=== PATIENT | female | born 1995 | race African-American/Black ===

== ENCOUNTER 2017-01-01 08:34 | Emergency (ER) | payer MEDICAID, OTHER ==
[~2017-01-01] VITALS: Ht 172.7 cm; Wt 59.0 kg
[2017-01-01 08:48] VITALS: BP 137/73
== END 2017-01-01 10:32 | disposition home or self-care (01) ==
LOC: ER 10:22
DX: T16.9XXA Foreign body in ear, unspecified ear, initial encounter (principal); F17.200 Nicotine dependence, unspecified, uncomplicated; W45.8XXA Other foreign body or object entering through skin, initial encounter; Y93.89 Activity, other specified; Y92.89 Other specified places as the place of occurrence of the external cause; Y99.8 Other external cause status
CPT/HCPCS: 99281

== ENCOUNTER 2017-07-26 18:12 | Emergency (ER) | payer MEDICAID ==
[~2017-07-26] VITALS: Ht 175.3 cm; Wt 69.0 kg
[2017-07-26 19:21] LABS: CLARITY URINE CLOUDY (CLEAR); COLOR URINE YELLOW (YELLOW); GLUCOSE URINE NEGATIVE (NEGATIVE); KETONES URINE 3+ (NEGATIVE); LEUKOCYTE ESTERASE URINE 2+ (NEGATIVE); NITRITE URINE POSITIVE (NEGATIVE); OCCULT BLOOD URINE 1+ (NEGATIVE); PROTEIN URINE TRACE (NEGATIVE)
[2017-07-26 21:44] VITALS: BP 119/71
== END 2017-07-26 21:45 | disposition home or self-care (01) ==
LOC: ER 18:12
DX: R07.9 Chest pain, unspecified (principal); N39.0 Urinary tract infection, site not specified; F17.200 Nicotine dependence, unspecified, uncomplicated
CPT/HCPCS: 71010; 76830; 76856; 81001; 81025; 93005; 99285

== ENCOUNTER 2018-08-07 10:03 | Emergency (ER) | payer MEDICAID ==
[~2018-08-07] VITALS: Ht 172.7 cm; Wt 59.0 kg
[2018-08-07] MEDS ORDERED: ONDANSETRON HCL 4MG/2ML INJ IV STA (10:51)
[2018-08-07] MEDS ORDERED: SODIUM CHLORIDE 0.9% 1,000 ML IV ONE (10:51)
[2018-08-07 11:06] LABS: CLARITY URINE CLOUDY (CLEAR); COLOR URINE YELLOW (YELLOW); KETONES URINE 1+ (NEGATIVE); LEUKOCYTE ESTERASE URINE 1+ (NEGATIVE); NITRITE URINE NEGATIVE (NEGATIVE); OCCULT BLOOD URINE 1+ (NEGATIVE); PH URINE 5.5 (4.5-8.0); PROTEIN URINE TRACE (NEGATIVE)
[2018-08-07 12:09] LABS: BASOPHILS % 0.6 % (0.0-2.0); EOSINOPHILS % 2.3 % (0.0-5.0); HEMATOCRIT. 36.5 % (36.0-48.0); HEMOGLOBIN. 12.1 g/dL (12.0-16.0); LYMPHOCYTES % 40.9 % (20.0-50.0); MEAN CORPUSCULAR HEMOGLOBIN 28.6 pg (28.0-32.0); MEAN CORPUSCULAR VOLUME 86.1 fL (81.0-99.0); MEAN PLATELET VOLUME 10.2 fl (7.4-10.4); MONOCYTES % 13.8 % (2.0-8.0); NEUTROPHILS % 42.4 % (40.0-76.0); PLATELET 209 x1000/uL (130-400); RED BLOOD CELL COUNT 4.24 mill/uL (4.2-5.4); RED CELL DISTRIBUTION WIDTH 13.3 % (11.6-14.6)
[2018-08-07 12:15] LABS: CHLORIDE 107 mEq/L (98-107)
[2018-08-07] MEDS ORDERED: POTASSIUM CHLORIDE 20MEQ TABLET SR PO ONE (13:15)
[2018-08-07 14:38] VITALS: BP 108/68
== END 2018-08-07 14:40 | disposition home or self-care (01) ==
LOC: ER 10:03
DX: K52.9 Noninfective gastroenteritis and colitis, unspecified (principal); F12.10 Cannabis abuse, uncomplicated
CPT/HCPCS: 36415; 80053; 81003; 81025; 83690; 85025; 96361; 96374; 99283; J2405; J7030

== ENCOUNTER 2019-08-14 16:26 | Emergency (ER) | payer MEDICAID ==
[~2019-08-14] VITALS: Ht 172.7 cm; Wt 60.0 kg
[2019-08-14 17:19] VITALS: BP 115/56
[2019-08-14] MEDS ORDERED: CEFTRIAXONE SODIUM 250 MG/VIAL IM ONE (20:15)
[2019-08-14] MEDS ORDERED: AZITHROMYCIN 500 MG TABLET PO ONE (20:15)
[2019-08-14 20:29] LABS: CLARITY URINE CLOUDY (CLEAR); COLOR URINE YELLOW (YELLOW); KETONES URINE 1+ (NEGATIVE); LEUKOCYTE ESTERASE URINE TRACE (NEGATIVE); NITRITE URINE POSITIVE (NEGATIVE); OCCULT BLOOD URINE NEGATIVE (NEGATIVE); PH URINE 5.5 (4.5-8.0); PROTEIN URINE 2+ (NEGATIVE); SPECIFIC GRAVITY URINE 1.031 (1.005-1.030)
== END 2019-08-14 20:58 | disposition home or self-care (01) ==
LOC: ER 16:26
DX: O23.41 Unspecified infection of urinary tract in pregnancy, first trimester (principal); O99.320 Drug use complicating pregnancy, unspecified trimester; F12.90 Cannabis use, unspecified, uncomplicated; Z3A.00 Weeks of gestation of pregnancy not specified
CPT/HCPCS: 81003; 81025; 96372; 99283; J0696

== ENCOUNTER 2019-12-10 23:13 | Emergency (ER) | payer MEDICAID ==
[~2019-12-10] VITALS: Ht 175.3 cm; Wt 64.0 kg
[2019-12-11 01:46] VITALS: BP 130/76
[2019-12-11] MEDS ORDERED: ACETAMINOPHEN 325MG TABLET PO STA (02:14)
[2019-12-11] MEDS ORDERED: VISCOUS LIDOCAINE 2% 15 ML UDC PO ONE (02:15)
[2019-12-11] MEDS ORDERED: MAGNESIUM/ALUMINUM HYDROXIDE/SIMETHICONE 30ML UDC PO ONE (02:15)
[2019-12-11 03:05] LABS: CLARITY URINE TURBID (CLEAR); COLOR URINE YELLOW (YELLOW); KETONES URINE NEGATIVE (NEGATIVE); LEUKOCYTE ESTERASE URINE 3+ (NEGATIVE); NITRITE URINE NEGATIVE (NEGATIVE); OCCULT BLOOD URINE NEGATIVE (NEGATIVE); PROTEIN URINE NEGATIVE (NEGATIVE)
[2019-12-11 03:53] LABS: BASOPHILS % 0.3 % (0.0-2.0); HEMATOCRIT. 30.4 % (36.0-48.0); HEMOGLOBIN. 10.1 g/dL (12.0-16.0); LYMPHOCYTES % 20.3 % (20.0-50.0); MEAN CORPUSCULAR HEMOGLOBIN 29.7 pg (28.0-32.0); MEAN CORPUSCULAR VOLUME 89.1 fL (81.0-99.0); MEAN PLATELET VOLUME 10.3 fl (7.4-10.4); MONOCYTES % 8.8 % (2.0-8.0); NEUTROPHILS % 67.6 % (40.0-76.0); PLATELET 160 x1000/uL (130-400); RED BLOOD CELL COUNT 3.41 mill/uL (4.2-5.4); RED CELL DISTRIBUTION WIDTH 13.8 % (11.6-14.6)
[2019-12-11 03:58] LABS: CHLORIDE 109 mEq/L (98-107)
== END 2019-12-11 05:08 | disposition left against medical advice (07) ==
LOC: ER 23:13
DX: O23.32 Infections of other parts of urinary tract in pregnancy, second trimester (principal); Z3A.21 21 weeks gestation of pregnancy
CPT/HCPCS: 36415; 80053; 81003; 81025; 83880; 84484; 85025; 93005; 99284

== ENCOUNTER 2020-01-07 21:34 | Observation (INO) | payer MEDICAID ==
[~2020-01-07] VITALS: Ht 172.7 cm; Wt 63.5 kg
[2020-01-07] MEDS ORDERED: PREN1TAB78 MT (22:17)
== END 2020-01-07 22:45 | disposition home or self-care (01) ==
LOC: 8 EST LDRP 21:34
PROVIDERS: ADMIT Specialist; ATTEND Specialist
DX: O26.892 Other specified pregnancy related conditions, second trimester (principal); R07.89 Other chest pain; Z3A.26 26 weeks gestation of pregnancy
CPT/HCPCS: 99281; G0378

== ENCOUNTER 2020-01-07 23:07 | Emergency (ER) | payer MEDICAID ==
[~2020-01-07] VITALS: Ht 172.7 cm; Wt 64.0 kg
[~2020-01-07 23:07] MED LIST: PREN1TAB78 MT
[2020-01-07 23:15] VITALS: BP 139/89
[2020-01-08 01:37] LABS: CHLORIDE 105 mEq/L (98-107)
[2020-01-08 01:38] LABS: HEMATOCRIT 31.4 % (36.0-48.0); MEAN CORPUSCULAR HEMOGLOBIN 30.9 pg (28.0-32.0); MEAN CORPUSCULAR VOLUME 88.3 fL (81.0-99.0); PLATELET 179 x1000/uL (130-400); RED BLOOD CELL COUNT 3.55 mill/uL (4.2-5.4); RED CELL DISTRIBUTION WIDTH 13.7 % (11.6-14.6)
[2020-01-08 02:34] LABS: CLARITY URINE CLOUDY (CLEAR); COLOR URINE YELLOW (YELLOW); KETONES URINE NEGATIVE (NEGATIVE); LEUKOCYTE ESTERASE URINE 2+ (NEGATIVE); NITRITE URINE NEGATIVE (NEGATIVE); OCCULT BLOOD URINE NEGATIVE (NEGATIVE); PH URINE 5.5 (4.5-8.0); PROTEIN URINE NEGATIVE (NEGATIVE); SPECIFIC GRAVITY URINE 1.027 (1.005-1.030); UROBILINOGEN URINE 0.2 E.U./dL (0.2-1.0)
[2020-01-08] MEDS ORDERED: CEPHALEXIN 250MG CAPSULE PO SCH (03:15)
== END 2020-01-08 03:34 | disposition home or self-care (01) ==
LOC: ER 23:07
DX: O26.892 Other specified pregnancy related conditions, second trimester (principal); O23.32 Infections of other parts of urinary tract in pregnancy, second trimester; Z3A.00 Weeks of gestation of pregnancy not specified
CPT/HCPCS: 36415; 76705; 80053; 81003; 85027; 93005; 99285

== ENCOUNTER 2020-02-01 17:28 | Observation (INO) | payer MEDICAID ==
[~2020-02-01] VITALS: Ht 172.7 cm; Wt 68.9 kg
== END 2020-02-01 19:45 | disposition home or self-care (01) ==
LOC: INTOOBSV 17:28 → 8 EST LDRP 17:28
PROVIDERS: ADMIT Obstetrics & Gynecology; ATTEND Obstetrics & Gynecology
DX: O36.8130 Decreased fetal movements, third trimester, not applicable or unspecified (principal); Z3A.30 30 weeks gestation of pregnancy
CPT/HCPCS: 76815; 76818; 99281; G0378

== ENCOUNTER 2020-03-18 14:58 | Observation (INO) | payer MEDICAID ==
[~2020-03-18] VITALS: Ht 175.3 cm; Wt 80.7 kg
[2020-03-18 15:54] LABS: CLARITY URINE CLEAR (CLEAR); COLOR URINE YELLOW (YELLOW); KETONES URINE NEGATIVE (NEGATIVE); LEUKOCYTE ESTERASE URINE 3+ (NEGATIVE); NITRITE URINE NEGATIVE (NEGATIVE); OCCULT BLOOD URINE NEGATIVE (NEGATIVE); PROTEIN URINE TRACE (NEGATIVE); SPECIFIC GRAVITY URINE 1.024 (1.005-1.030)
[2020-03-18] MEDS: LACTATED RINGERS 1,000 ML IV SCH ×2 (16:18→16:31)
[2020-03-18] MEDS ORDERED: CEFAZOLIN 2,000 MG in DEXT 5% WATER 100 ML IV NR (17:00)
== END 2020-03-18 17:05 | disposition home or self-care (01) ==
LOC: 8 EST LDRP 14:58
PROVIDERS: ADMIT Obstetrics & Gynecology; ATTEND Obstetrics & Gynecology
DX: O26.893 Other specified pregnancy related conditions, third trimester (principal); R10.9 Unspecified abdominal pain; Z3A.36 36 weeks gestation of pregnancy
CPT/HCPCS: 81003; 87086; 96361; 96365; 99281; G0378; J0690; J7060; 96360

== ENCOUNTER 2020-04-06 19:50 | Observation (INO) | payer MEDICAID ==
[~2020-04-06] VITALS: Ht 172.7 cm; Wt 84.8 kg
[2020-04-06] MEDS ORDERED: LACTATED RINGERS 1,000 ML IV NR (20:53)
[2020-04-06] MEDS ORDERED: FERR325T6 PO (23:25)
== END 2020-04-06 23:39 | disposition home or self-care (01) ==
LOC: 8 EST LDRP 19:50
PROVIDERS: ADMIT Obstetrics & Gynecology; ATTEND Obstetrics & Gynecology
DX: O26.893 Other specified pregnancy related conditions, third trimester (principal); R10.30 Lower abdominal pain, unspecified; Z3A.38 38 weeks gestation of pregnancy; W01.0XXA Fall on same level from slipping, tripping and stumbling without subsequent striking against object, initial encounter; Y93.89 Activity, other specified; Y92.89 Other specified places as the place of occurrence of the external cause
CPT/HCPCS: 59025; 76805; 76817; 76818; G0378

== ENCOUNTER 2020-04-11 18:03 | Observation (INO) | payer MEDICAID ==
[~2020-04-11] VITALS: Ht 172.7 cm; Wt 86.2 kg
[~2020-04-11 18:03] MED LIST changes: +FERR325T6 PO
[2020-04-11] MEDS ORDERED: LACTATED RINGERS 1,000 ML IV SCH (21:30)
[2020-04-11 21:48] LABS: CLARITY URINE CLEAR (CLEAR); COLOR URINE YELLOW (YELLOW); KETONES URINE NEGATIVE (NEGATIVE); LEUKOCYTE ESTERASE URINE 2+ (NEGATIVE); NITRITE URINE NEGATIVE (NEGATIVE); OCCULT BLOOD URINE NEGATIVE (NEGATIVE); PROTEIN URINE TRACE (NEGATIVE); SPECIFIC GRAVITY URINE 1.028 (1.005-1.030)
[2020-04-11 21:52] LABS: BASOPHILS % 0.2 % (0.0-2.0); EOSINOPHILS % 0.8 % (0.0-5.0); HEMOGLOBIN. 9.9 g/dL (12.0-16.0); LYMPHOCYTES % 17.3 % (20.0-50.0); MEAN CORPUSCULAR HEMOGLOBIN 29.8 pg (28.0-32.0); MEAN CORPUSCULAR VOLUME 87.8 fL (81.0-99.0); MEAN PLATELET VOLUME 11.7 fl (7.4-10.4); MONOCYTES % 9.7 % (2.0-8.0); PLATELET 168 x1000/uL (130-400); RED BLOOD CELL COUNT 3.31 mill/uL (4.2-5.4); RED CELL DISTRIBUTION WIDTH 14.2 % (11.6-14.6)
[2020-04-11 22:00] LABS: CHLORIDE 109 mEq/L (98-107)
[2020-04-11 22:06] LABS: D-DIMER 2.47 mg/L FEU (<0.50); INR 0.9; PARTIAL THROMBOPLASTIN TIME 28.7 sec (23.4-31.0); PROTHROMBIN TIME 9.8 sec (9.6-11.0)
== END 2020-04-11 23:58 | disposition home or self-care (01) ==
LOC: 8 EST LDRP 18:03
PROVIDERS: ADMIT Obstetrics & Gynecology; ATTEND Obstetrics & Gynecology
DX: O21.2 Late vomiting of pregnancy (principal); O26.893 Other specified pregnancy related conditions, third trimester; R51 Headache; Z3A.39 39 weeks gestation of pregnancy; Z79.899 Other long term (current) drug therapy
CPT/HCPCS: 36415; 59025; 80053; 81003; 84550; 85025; 85379; 85384; 85610; 85730; 96360; 96361; G0378; 99281

== ENCOUNTER 2021-02-19 13:01 | Emergency (ER) | payer MEDICAID ==
[~2021-02-19] VITALS: Ht 175.3 cm; Wt 60.0 kg
[2021-02-19] MEDS ORDERED: KETOROLAC 30MG/ML VIAL IM ONE (14:15)
[2021-02-19] MEDS ORDERED: IBUP-2029 MT (14:42)
[2021-02-19 14:54] VITALS: BP 114/72
== END 2021-02-19 14:58 | disposition home or self-care (01) ==
LOC: ER 13:01
DX: R51.9 Headache, unspecified (principal)
CPT/HCPCS: 81025; 96372; 99283; J1885

== ENCOUNTER 2021-08-21 19:11 | Emergency (ER) | payer MEDICAID, OTHER ==
[~2021-08-21] VITALS: Ht 175.3 cm; Wt 64.0 kg
[~2021-08-21 19:11] MED LIST changes: +IBUP-2029 MT
[2021-08-21] MEDS ORDERED: IBUP-2028 MT (20:21)
[2021-08-21] MEDS ORDERED: IBUPROFEN 400MG TABLET PO ONE (20:30)
[2021-08-21 20:42] VITALS: BP 100/56
== END 2021-08-21 20:44 | disposition home or self-care (01) ==
LOC: ER 19:11
DX: U07.1 COVID-19 (principal)
CPT/HCPCS: 81025; 99283; C9803; U0003; U0005

== ENCOUNTER 2022-09-22 10:48 | Emergency (ER) | payer OTHER ==
[~2022-09-22] VITALS: Ht 175.3 cm; Wt 63.0 kg
[~2022-09-22 10:48] MED LIST changes: +IBUP-2028 MT
[2022-09-22 10:58] VITALS: BP 128/81
[2022-09-22 14:33] LABS: BASOPHILS % 0.7 % (0.0-2.0); EOSINOPHILS % 0.1 % (0.0-5.0); HEMATOCRIT. 36.4 % (36.0-48.0); HEMOGLOBIN. 12.3 g/dL (12.0-16.0); LYMPHOCYTES % 17.2 % (20.0-50.0); MEAN CORPUSCULAR HEMOGLOBIN 28.8 pg (28.0-32.0); MEAN CORPUSCULAR VOLUME 85.6 fL (81.0-99.0); MEAN PLATELET VOLUME 10.4 fl (7.4-10.4); MONOCYTES % 6.3 % (2.0-8.0); NEUTROPHILS % 75.7 % (40.0-76.0); PLATELET 192 x1000/uL (130-400); RED BLOOD CELL COUNT 4.25 mill/uL (4.2-5.4); RED CELL DISTRIBUTION WIDTH 12.9 % (11.6-14.6)
[2022-09-22 14:43] LABS: CHLORIDE 100 mEq/L (98-107)
[2022-09-22 15:07] LABS: B-HCG QUANTITATIVE 89056 mIU/mL (<3)
[2022-09-22] MEDS: POTASSIUM CHLORIDE 20MEQ/PACKET PO SCH ×2 (15:30→15:50)
== END 2022-09-22 17:14 | disposition home or self-care (01) ==
LOC: ER 10:48
DX: O30.001 Twin pregnancy, unspecified number of placenta and unspecified number of amniotic sacs, first trimester (principal); Z3A.01 Less than 8 weeks gestation of pregnancy; Z98.890 Other specified postprocedural states; Z79.899 Other long term (current) drug therapy
CPT/HCPCS: 36415; 76801; 76802; 80053; 81025; 84702; 85025; 86850; 86900; 99284

== ENCOUNTER 2023-01-18 19:59 | Emergency (ER) | payer OTHER ==
[~2023-01-18] VITALS: Ht 175.3 cm; Wt 56.4 kg
[2023-01-18 21:07] VITALS: BP 115/78
[2023-01-18] MEDS ORDERED: ONDANSETRON 4MG ODT PO STA (22:00)
[2023-01-18 22:57] LABS: BASOPHILS % 0.9 % (0.0-2.0); EOSINOPHILS % 0.5 % (0.0-5.0); HEMATOCRIT. 39.1 % (36.0-48.0); HEMOGLOBIN. 13.3 g/dL (12.0-16.0); LYMPHOCYTES % 27.8 % (20.0-50.0); MEAN CORPUSCULAR HEMOGLOBIN 28.5 pg (28.0-32.0); MEAN CORPUSCULAR VOLUME 83.9 fL (81.0-99.0); MEAN PLATELET VOLUME 9.9 fl (7.4-10.4); MONOCYTES % 9.2 % (2.0-8.0); NEUTROPHILS % 61.6 % (40.0-76.0); PLATELET 261 x1000/uL (130-400); RED BLOOD CELL COUNT 4.65 mill/uL (4.2-5.4); RED CELL DISTRIBUTION WIDTH 13.3 % (11.6-14.6)
[2023-01-18 22:57] LABS: CLARITY URINE CLOUDY (CLEAR); COLOR URINE DARK YELLOW (YELLOW); KETONES URINE 3+ (NEGATIVE); LEUKOCYTE ESTERASE URINE 1+ (NEGATIVE); NITRITE URINE NEGATIVE (NEGATIVE); OCCULT BLOOD URINE NEGATIVE (NEGATIVE); PH URINE 6.5 (4.5-8.0); PROTEIN URINE 2+ (NEGATIVE); SPECIFIC GRAVITY URINE 1.029 (1.005-1.030)
[2023-01-18 23:05] LABS: CHLORIDE 103 mEq/L (98-107)
[2023-01-19] MEDS ORDERED: ONDA4TAB11 PO (00:02)
[2023-01-19] MEDS ORDERED: CEPH500C2 MT (00:02)
== END 2023-01-19 00:30 | disposition home or self-care (01) ==
LOC: ER 19:59
DX: R50.9 Fever, unspecified (principal); R51.9 Headache, unspecified; J02.9 Acute pharyngitis, unspecified; Z98.890 Other specified postprocedural states
CPT/HCPCS: 36415; 80053; 81003; 81025; 83690; 84702; 85025; 99283; Q0162

== ENCOUNTER 2024-02-29 16:38 | Emergency (ER) | payer OTHER ==
[~2024-02-29] VITALS: Ht 175.3 cm; Wt 70.0 kg
[~2024-02-29 16:38] MED LIST changes: +CEPH500C2 MT; +ONDA4TAB11 PO
[2024-02-29 16:41] VITALS: O2SAT 100
[2024-02-29] MEDS ORDERED: ONDANSETRON HCL 4MG/2ML INJ IM STA (17:05)
[2024-02-29] MEDS ORDERED: FAMOTIDINE 20MG TABLET PO ONE (17:15)
[2024-02-29 17:32] LABS: BASOPHILS % 0.9 % (0.0-2.0); DIFFERENTIAL COMMENT 0; EOSINOPHILS % 1.1 % (0.0-5.0); HEMATOCRIT. 35.7 % (36.0-48.0); HEMOGLOBIN. 11.9 g/dL (12.0-16.0); MEAN CORPUSCULAR HEMOGLOBIN 29.1 pg (28.0-32.0); MEAN CORPUSCULAR HGB CONC 33.3 g/dL (31.0-37.0); MEAN CORPUSCULAR VOLUME 87.2 fL (81.0-99.0); MEAN PLATELET VOLUME 10.1 fl (7.4-10.4); MONOCYTES % 7.2 % (2.0-8.0); NEUTROPHILS % 60.8 % (40.0-76.0); PLATELET 195 x1000/uL (130-400); RED BLOOD CELL COUNT 4.09 mill/uL (4.2-5.4); RED CELL DISTRIBUTION WIDTH 12.8 % (11.6-14.6); WHITE BLOOD COUNT 6.1 x1000/uL (4.5-11.0)
[2024-02-29] MEDS: SODIUM CHLORIDE 0.9% 1,000 ML IV ONE (17:32)
[2024-02-29 17:37] LABS: CHLORIDE 106 mEq/L (98-107); POTASSIUM 3.7 mEq/L (3.5-5.1); SODIUM 136 mEq/L (136-145)
[2024-02-29 17:38] LABS: CALCIUM 9.2 mg/dL (8.7-10.4); CARBON DIOXIDE 23 mEq/L (21-32)
[2024-02-29 17:43] LABS: CREATININE 0.6 mg/dL (0.6-1.0); GLUCOSE 79 mg/dL (70-105); UREA NITROGEN BLOOD 5 mg/dL (9-23)
[2024-02-29 17:47] LABS: CLARITY URINE CLOUDY (CLEAR); COLOR URINE YELLOW (YELLOW); GLUCOSE URINE NEGATIVE (NEGATIVE); KETONES URINE 4+ (NEGATIVE); LEUKOCYTE ESTERASE URINE TRACE (NEGATIVE); NITRITE URINE NEGATIVE (NEGATIVE); OCCULT BLOOD URINE NEGATIVE (NEGATIVE); PH URINE 6.5 (4.5-8.0); PROTEIN URINE TRACE (NEGATIVE); SPECIFIC GRAVITY URINE 1.029 (1.005-1.030)
[2024-02-29] MEDS: ACETAMINOPHEN 325MG TABLET PO STA (17:50)
[2024-02-29] MEDS: ONDANSETRON HCL 4MG/2ML INJ IV STA (17:50)
[2024-02-29] MEDS: FAMOTIDINE 20MG/2ML VIAL IV STA (17:50)
[2024-02-29 17:58] LABS: BACTERIA URINE TRACE; RBC URINE 0-2 /hpf (0-2); SQUAMOUS EPITHELIAL CELL URINE 1+ /lpf (RARE/1+)
[2024-02-29 18:13] LABS: B-HCG QUANTITATIVE 123613 mIU/mL (<3)
[2024-02-29 18:30] VITALS: BP 117/68; PULSE 69; RESP 19; TEMP 98.7
[2024-02-29] MEDS ORDERED: ONDA4TAB50 PO (18:36)
[2024-02-29] MEDS ORDERED: PREN1TAB78 MT (18:36)
[2024-02-29] MEDS ORDERED: ACET-2708 MT (18:36)
== END 2024-02-29 18:49 | disposition home or self-care (01) ==
LOC: ER 16:38
DX: O21.9 Vomiting of pregnancy, unspecified (principal); O26.891 Other specified pregnancy related conditions, first trimester; K52.9 Noninfective gastroenteritis and colitis, unspecified; Z3A.01 Less than 8 weeks gestation of pregnancy; Z98.890 Other specified postprocedural states; Z79.899 Other long term (current) drug therapy
CPT/HCPCS: 80048; 81003; 81025; 84702; 83690; 85025; 36415; 96374; 96375; 99284; J3490; J2405; J7030; Z7610